=== PATIENT | female | born 1970 | race Caucasian/White ===

== ENCOUNTER 2017-05-30 13:41 | Emergency (ER) | payer SELFPAY ==
[2017-05-30 13:54] VITALS: BP 147/73; BMI 42.0
[2017-05-30] MEDS ORDERED: ACETAMINOPHEN 500 MG TABLET (FP) PO ONE (14:39)
--- NOTE | 2017-05-30 14:40 | PDOC ---
History of Present Illness - General Chief Complaint: Cold Symptoms Stated Complaint: FEVER, COUGH Time Seen by Provider: 05/30/17 14:30 History Source: Patient Exam Limitations: No Limitations, Language Barrier (Patient's adult daughter provided vietnamese translation. ) - History of Present Illness Initial Comments: CHIEF COMPLAINT: 47 y/o febrile female with cough, fever and sore throat x 3 days. HISTORY OF PRESENT ILLNESS: The patient has had symptoms for 3 days and is not getting any better. She is drinking but not eating much. She denies earache, productive cough, CP, SOB, abd pain, back pain, rash. Vital signs on arrival are notable for pulse of 102 secondary to fever of 101. REVIEW OF SYSTEMS: GENERAL/CONSTITUTIONAL: + fever/chills. No weakness. No weight change. HEAD, EYES, EARS, NOSE AND THROAT: No change in vision. No ear pain or discharge. +sore throat CARDIOVASCULAR: No chest pain or shortness of breath. RESPIRATORY: +dry cough. No wheezing or hemoptysis. GASTROINTESTINAL: No abd pain, nausea, vomiting, diarrhea. GENITOURINARY: No dysuria, frequency, or change in urination. MUSCULOSKELETAL: No joint or muscle swelling or pain. No neck or back pain. SKIN: No rash or easy bruising. NEUROLOGIC: No headache, vertigo, loss of consciousness, or loss of sensation. PHYSICAL EXAM: GENERAL: The patient is awake, alert, and fully oriented, in no acute distress. She is non toxic but ill appearing with congested sounding cough. HEAD: Normal with no signs of trauma. NECK: Tender anterior cervical lymphadenopathy. ENT: Pupils equal, round and reactive to light, extraocular movements intact, sclera anicteric, conjunctiva clear. 2+ erythematous tonsils with copious exudate on left tonsil. Uvula midline. No soft/hard palate deformities. No trismus. LUNGS: Clear to auscultation bilaterally. Normal excursion. No respiratory distress or use of accessory muscles. CV: RRR, S1/S2, no MRG. Cap refill < 2 sec. ABDOMEN: Soft, non-distended, non-tender even to deep palpation, no hepatomegaly or splenomegaly, no masses. EXTREMITIES: Normal range of motion, no edema. SKIN: Warm, dry, normal turgor, no rashes or lesions noted. Past History - Past Medical History Allergies/Adverse Reactions: Allergies Allergy/AdvReac Type Severity Reaction Status Date / Time No Known Allergies Allergy Verified 05/30/17 13:50 Other medical history: DENIES. - Psycho/Social/Smoking Cessation Hx Suicidal Ideation: No Smoking History: Never smoked *Physical Exam - Vital Signs Last Vital Signs Temp Pulse Resp BP Pulse Ox 101 F H 102 H 19 147/73 95 05/30/17 13:50 05/30/17 13:50 05/30/17 13:50 05/30/17 13:50 05/30/17 13:50 Medical Decision Making - Medical Decision Making A/P: 47 y/o febrile female with strep pharyngitis based on Centor score. Plan is as follows: 1. PO tylenol 2. IM bicillin The patient is no longer febrile or tachycardic. instructed her to continue alternating between advil and tylenol every 3 hours for fever, drink plenty of fluids, eat soft/cold foods and get plenty of rest. Suggested gargling with warm salt water as well. Instructed her to return to the ER with any worsening or concerning symptoms. The patient verbalizes understanding of all instructions, has no further questions and is awaiting discharge. *DC/Admit/Observation/Transfer Diagnosis at time of Disposition: Strep pharyngitis - Discharge Dispostion Disposition: HOME Condition at time of disposition: Improved - Patient Instructions Printed Discharge Instructions: DI for Strep Throat Additional Instructions: Discharge Instructions: -You were treated with Bicillin today for strep throat. No more antibiotics are needed -Please alternate between 600mg of Advil and 650mg of TYlenol every 3 hours for fever and pain; next Advil dose is at 6pm. -Take Robitussin for cough. -Gargle with warm salt water to help with throat pain -Eat soft and cold foods to help with sore throat -Drink plenty of fluids -Throw away your current toothbrush -Return to the ER with any worsening or concerning symptoms. Instrucciones de hal: -Usted fue tratado con Bicillin hoy para la garganta estreptoccica. No se necesitan ms antibiticos -Por favor, alternar entre 600mg de Advil y 650mg de TYlenol cada 3 horas para la fiebre y el dolor; Siguiente La dosis de Advil es a las 6pm. -[place] Robitussin para la tos. -Gargar con agua tibia salada para ayudar con el dolor de garganta Coma alimentos suaves y fros para ayudar con dolor de garganta -Beber mucho lquido -Tirar el cepillo de dientes actual -Vuelva a la allie de emergencias con cualquier empeoramiento o sntomas relacionados. Print Language: [id number]
[2017-05-30] MEDS ORDERED: ACETAMINOPHEN 500 MG TABLET (FP) ONE (14:48)
[2017-05-30] MEDS ORDERED: PENICILLIN G BENZATHINE 1,200,000 UNIT/2 ML PFS IM ONE (14:56)
[2017-05-30] MEDS ORDERED: PENICILLIN G BENZATHINE 2,400,000 UNIT/4 ML PFS ONE (15:00)
[2017-05-30 15:56] VITALS: PULSE 88; TEMP 98.9
== END 2017-05-30 16:17 | disposition home or self-care (01) ==
LOC: JERFT 13:41
DX: J02.0 Streptococcal pharyngitis (principal); B95.5 Unspecified streptococcus as the cause of diseases classified elsewhere
CPT/HCPCS: 99281-25